=== PATIENT | female | born 1990 | race American Indian/Alaskan Native ===

== ENCOUNTER 2016-11-09 19:51 | Emergency (ER) | payer OTHER | END 2016-11-09 23:02 | disposition left against medical advice (07) | LOC: ED 19:51 | DX: R31.9 Hematuria, unspecified (principal); Z53.21 Procedure and treatment not carried out due to patient leaving prior to being seen by health care provider ==

== ENCOUNTER 2019-03-21 19:17 | Emergency (ER) | payer OTHER ==
[2019-03-21 19:27] VITALS: BP 113/78
--- NOTE | 2019-03-21 19:27 | Event Note ---
ED Screening Note Date of service: 03/21/19 Time: 19:24 ED Screening Note: 28 y o f presents at 13 weeks gestation presents with pelvic abd pain no vag bleed, vah d/c urinary sx This initial assessment/diagnostic orders/clinical plan/treatment(s) is/are subject to change based on patients health status, clinical progression and re- assessment by fellow clinical providers in the ED. Further treatment and workup at subsequent clinical providers discretion. Patient/guardian urged not to elope from the ED as their condition may be serious if not clinically assessed and managed. Initial orders include: ua , upt us
[2019-03-21 19:50] LABS: HCG Qualitative,Urine Positive (Negative)
[2019-03-21 19:52] LABS: Bilirubin,Urine NEG (Negative); Blood,Urine NEG (Negative); Color,Urine Yellow (Yellow); Mucus,Urine 2+ /HPF; Protein,Urine <15 mg/dL mg/dL (Negative)
--- NOTE | 2019-03-21 21:05 | Ultrasound Report ---
Early obstetrical ultrasound INDICATION: 13 week , pelvic pain, abdominal pain, duration 2 days, intermittent Endovaginal study was performed. Intrauterine is noted with a crescentic gestational sac wh ich appears to be in [place] upon by an anterior 7.6 cm leiomyoma. No obvious implantational bleed is seen. Fetus shows cardiac activity recorded at 149 bpm. Center is anterior and appears free of the internal cervical os. Estimated gestational age by crown-rump length is 12 weeks 4 days which corres ponds clinical dating. No obvious anomaly is seen in this early stage of . Amniotic fluid vo lume appears qualitatively acceptable for this stage of . Minimal cystic area seen in the right ovary. Right ovary measures 2.5 cm in length. Left ovary measur es 2.5 cm in length and shows a minimal cyst as well. No free fluid is seen. IMPRESSION: Early intrauterine is noted as above with estimated gestational age of 12 weeks 4 days. There appears to be a prominent anterior leiomyoma which currently impinges on the sac but n o other abnormalities are seen. Signer Name: Issa Rust MD Signed: 03/21/2019 9:01 PM Workstation Name: [id number]
--- NOTE | 2019-03-21 21:22 | Emergency Department Report ---
ED General Adult HPI - General Chief complaint: Abdominal Pain Stated complaint: ABDOMINAL PAIN(13 WKS PREG) Time Seen by Provider: 03/21/19 19:24 Source: patient Mode of arrival: Ambulatory Limitations: No Limitations - History of Present Illness Initial comments: The patient presents to the emergency department with a chief complaint of abdominal pain. Patient is a with 3 miscarriages was evaluated 2 weeks ago at [facility] for the same symptoms. Patient denies any vaginal bleeding or discharge. Patient follows an [facility] at [facility] obstetrics and gynecology -: Gradual Location: abdomen Radiation: non-radiation Severity scale (0 -10): 3 Quality: aching Consistency: constant Improves with: none Worsens with: none Associated Symptoms: denies other symptoms Treatments Prior to Arrival: none - Related Data Previous Rx's Medication Instructions Recorded Last Taken Type Acetaminophen/Codeine [Tylenol 1 tab PO Q6H PRN #15 tab 03/21/19 Unknown Rx /Codeine # 3 tab] Allergies Allergy/AdvReac Type Severity Reaction Status Date / Time No Known Allergies Allergy Unverified 01/12/16 09:53 ED Review of Systems ROS: Stated complaint: ABDOMINAL PAIN(13 WKS PREG) Other details as noted in HPI Constitutional: denies: chills, fever Eyes: denies: eye pain, eye discharge, vision change ENT: denies: ear pain, throat pain Respiratory: denies: cough, shortness of breath, wheezing Cardiovascular: denies: chest pain, palpitations Endocrine: no symptoms reported Gastrointestinal: denies: abdominal pain, nausea, diarrhea Genitourinary: denies: urgency, dysuria, discharge Musculoskeletal: denies: back pain, joint swelling, arthralgia Skin: denies: rash, lesions Neurological: denies: headache, weakness, paresthesias Psychiatric: denies: anxiety, depression Hematological/Lymphatic: denies: easy bleeding, easy bruising ED Past Medical Hx - Past Medical History Previous Medical History?: No Hx Hypertension: No - Surgical History Past Surgical History?: Yes Additional Surgical History: Bilateral Breast Reduction - Social History Smoking Status: Never Smoker Substance Use Type: None - Medications Home Medications: Home Medications Medication Instructions Recorded Confirmed Last Taken Type Acetaminophen/Codeine [Tylenol 1 tab PO Q6H PRN #15 tab 03/21/19 Unknown Rx /Codeine # 3 tab] ED Physical Exam - General Limitations: No Limitations General appearance: alert, in no apparent distress - Head Head exam: Present: atraumatic, normocephalic - Eye Eye exam: Present: normal appearance, PERRL, EOMI - ENT ENT exam: Present: mucous membranes moist - Neck Neck exam: Present: normal inspection - Respiratory Respiratory exam: Present: normal lung sounds bilaterally. Absent: respiratory distress - Cardiovascular Cardiovascular Exam: Present: regular rate, normal rhythm. Absent: systolic murmur, diastolic murmur, rubs, gallop - GI/Abdominal GI/Abdominal exam: Present: soft, normal bowel sounds, other (gravid uterus). Absent: distended, tenderness - Extremities Exam Extremities exam: Present: normal inspection - Back Exam Back exam: Present: normal inspection - Neurological Exam Neurological exam: Present: alert, oriented X3, CN II-XII intact. Absent: motor sensory deficit - Psychiatric Psychiatric exam: Present: normal affect, normal mood - Skin Skin exam: Present: warm, dry, intact, normal color. Absent: rash ED Course Vital Signs 03/21/19 19:25 Temperature 98.1 F Pulse Rate 93 H Respiratory 18 Rate Blood Pressure 113/78 O2 Sat by Pulse 100 Oximetry ED Medical Decision Making - Lab Data Lab Results 03/21/19 Range/Units 19:35 Urine Color Yellow (Yellow) Urine Turbidity Clear (Clear) Urine pH 6.0 (5.0-7.0) Ur Specific [place] 1.023 (1.003-1.030) Urine Protein <15 mg/dl (Negative) mg/dL Urine Glucose (UA) Neg (Negative) mg/dL Urine Ketones Neg (Negative) mg/dL Urine Blood Neg (Negative) Urine Nitrite Neg (Negative) Ur Reducing Substances Not Reportable Urine Bilirubin Neg (Negative) Urine Ictotest Not Reportable Urine Urobilinogen 2.0 (<2.0) mg/dL Ur Leukocyte Esterase Sm (Negative) Urine WBC (Auto) 1.0 (0.0-6.0) /HPF Urine RBC (Auto) 3.0 (0.0-6.0) /HPF U Epithel Cells (Auto) 3.0 (0-13.0) /HPF Urine Mucus 2+ /HPF Urine HCG, Qual Positive A (Negative) - Radiology Data Radiology results: report reviewed - Medical Decision Making Results discussed with patient Also discussed with patient Critical care attestation.: If time is entered above; I have spent that time in minutes in the direct care of this critically ill patient, excluding procedure time. ED Disposition Clinical Impression: Abdominal pain in Disposition: - TO HOME OR SELFCARE Is pt being admited?: No Does the pt Need Aspirin: No Condition: Stable Instructions: Abdominal Pain (ED) Additional Instructions: return if worse or if there is vaginal bleeding or vaginal discharge Prescriptions: Acetaminophen/Codeine [Tylenol /Codeine # 3 tab] 1 tab PO Q6H PRN #15 tab PRN Reason: pain Referrals: [facility] [Provider Group] - 3-5 Days Time of Disposition: 21:21
== END 2019-03-21 22:15 | disposition home or self-care (01) ==
LOC: ED 19:17
DX: O26.891 Other specified pregnancy related conditions, first trimester (principal); Z3A.12 12 weeks gestation of pregnancy
CPT/HCPCS: 76801; 81001; 81025; 99284